=== PATIENT | female | born 1995 | race Caucasian/White ===

== ENCOUNTER 2018-03-01 21:45 | Inpatient (IN) ==
[2018-03-01] MEDS ORDERED: ONDANSETRON 4 MG/2 ML VIAL IV PRN (22:00)
[2018-03-01] MEDS ORDERED: MEPERIDINE 50 MG/1 ML VIAL IV PRN (22:00)
[2018-03-01] MEDS ORDERED: BUTORPHANOL 2 MG/ML VIAL IV PRN (22:00)
[2018-03-01 22:28] LABS: Basophils % 0.2 % (0.0-0.8); Eosinophils # 0.1 10*3/uL (0.0-0.87); Eosinophils % 0.6 % (0.00-10.9); Hematocrit 33.8 VOL% (35.7-47.0); Hemoglobin 10.7 GM/DL (12.0-16.0); Immature Granulocytes % 1.1 %; Lymphocytes # 1.4 10*3/uL (1.4-4.0); Lymphocytes % 14.9 % (21.3-54.2); Mean Corpuscular HGB Conc 31.7 GM/DL (32-36); Mean Corpuscular Hemoglobin 24 PG (27-34); Mean Corpuscular Volume 75.6 FL (87-102); Mean Platelet Volume 10.2 FL (9.6-12.0); Monocytes # 0.5 10*3/uL (0.11-0.8); Monocytes % 5.2 % (1.7-12.7); Neutrophils # 7.2 10*3/uL (1.4-7.4); Platelet Count 296 T/CUMM (130-400); Red Blood Count 4.47 MC/CUMM (3.8-5.5); Red Cell Distribution Width 17.2 % (9.3-17.3); White Blood Count 9.2 T/CUMM (4-12)
[2018-03-01 22:46] LABS: Albumin 2.6 G/DL (3.4-5.0); Bilirubin,Total 0.5 MG/DL (0.2-1.0); Osmolality,Calculated 273.7 MOS/KG (273-304); Potassium 3.9 MMOL/L (3.5-5.1); Total Protein 6.8 G/DL (6.4-8.3)
[2018-03-02] MEDS: LACTATED RINGERS 1,000 ML IV SCH
[2018-03-03] MEDS ORDERED: PROMETHAZINE 25 MG/1 ML VIAL IM ONE (07:31)
[2018-03-03] MEDS ORDERED: ONDANSETRON 4 MG/2 ML VIAL IV ONE (07:31)
[2018-03-03] MEDS ORDERED: hydrOXYzine HCL 25 MG/1 ML VIAL IM PRN (07:31)
[2018-03-03] MEDS ORDERED: ePHEDrine 50 MG/ML AMP IV PRN (07:31)
[2018-03-03] MEDS ORDERED: diphenhydrAMINE 50 MG/1 ML VIAL IV PRN ×2 (07:31)
[2018-03-03] MEDS ORDERED: LACTATED RINGERS 1,000 ML IV ONE (07:31)
[2018-03-03] MEDS ORDERED: LACTATED RINGERS 500 ML IV ONE (07:31)
[2018-03-03] MEDS ORDERED: CITRIC ACID/SODIUM CITRATE 30 ML UDCUP PO ONE (07:32)
[2018-03-03] MEDS ORDERED: FAMOTIDINE 20 MG/2 ML VIAL IV ONE (07:32)
[2018-03-03] MEDS ORDERED: OXYTOCIN/LR 20 UNIT/1,000 ML BAG IV SCH (08:00)
[2018-03-03] MEDS ORDERED: CLINDAMYCIN INJ 900 MG in PREMIX 1 EACH IV SCH (08:00)
[2018-03-03] MEDS ORDERED: fentaNYL 2 MCG/ROPIV 0.2% EPID 150 ML EPIDURAL SCH (08:00)
[2018-03-03] MEDS ORDERED: LACTATED RINGERS 1,000 ML IV SCH ×2 (08:00)
[2018-03-03 08:35] LABS: Basophils % 0.1 % (0.0-0.8); Eosinophils # 0.1 10*3/uL (0.0-0.87); Eosinophils % 0.7 % (0.00-10.9); Hematocrit 35.7 VOL% (35.7-47.0); Hemoglobin 11.2 GM/DL (12.0-16.0); Immature Granulocytes % 0.7 %; Immature Granulocytes Absolute 0.07 #; Lymphocytes # 1.5 10*3/uL (1.4-4.0); Lymphocytes % 13.6 % (21.3-54.2); Mean Corpuscular HGB Conc 31.4 GM/DL (32-36); Mean Corpuscular Hemoglobin 24 PG (27-34); Mean Corpuscular Volume 76.9 FL (87-102); Monocytes # 0.6 10*3/uL (0.11-0.8); Monocytes % 5.8 % (1.7-12.7); Neutrophils # 8.5 10*3/uL (1.4-7.4); Neutrophils % 79.1 % (38.7-73.9); Platelet Count 249 T/CUMM (130-400); Red Blood Count 4.64 MC/CUMM (3.8-5.5); Red Cell Distribution Width 17.4 % (9.3-17.3); White Blood Count 10.7 T/CUMM (4-12)
[2018-03-03] MEDS: LACTATED RINGERS 1,000 ML IV SCH (08:52)
[2018-03-03] MEDS ORDERED: LIDOCAINE 1% 50 ML VIAL ONE (11:46)
[2018-03-03] MEDS ORDERED: miSOPROStol 200 MCG TABLET ONE (11:47)
[2018-03-03] MEDS ORDERED: CARBOPROST TROMETHAMINE 250 MCG/ML AMP IM ONE (11:47)
[2018-03-03] MEDS ORDERED: METHYLERGONOVINE 0.2 MG/1 ML AMP ONE (11:47)
[2018-03-03] MEDS ORDERED: ACETAMINOPHEN 325 MG TABLET PO PRN (13:07)
[2018-03-03] MEDS ORDERED: ONDANSETRON 4 MG/2 ML VIAL IV PRN (13:07)
[2018-03-03] MEDS ORDERED: MEASLES/MUMPS/RUBELLA VACCINE 0.5 ML VIAL SUBCUT ONE (13:07)
[2018-03-03] MEDS ORDERED: WITCH HAZEL PADS 100/JAR TOP PRN (13:07)
[2018-03-03] MEDS ORDERED: LANOLIN 50% CREAM 0.3 OZ TUBE TOP PRN (13:07)
[2018-03-03] MEDS ORDERED: OXYTOCIN/LR 20 UNIT/1,000 ML BAG IV ONE (13:07)
[2018-03-03] MEDS ORDERED: HYDROCORTISONE 2.5% RECTAL CREAM 30 GM TUBE TOP PRN (13:07)
[2018-03-03] MEDS ORDERED: DIPH/TET/ACEL PERT BOOSTER VACCINE 0.5 ML VIAL IM ONE (13:07)
[2018-03-03] MEDS ORDERED: RHO(D) IMMUNE GLOBULIN 300 MCG SYRINGE IM ONE (13:07)
[2018-03-03] MEDS ORDERED: BISACODYL 10 MG SUPP RECTAL PRN (13:07)
[2018-03-03] MEDS ORDERED: BENZOCAINE 20%/MENTHOL 0.5% SPRAY 56 GM CAN TOP PRN (13:07)
[2018-03-03] MEDS: IBUPROFEN 800 MG TABLET PO PRN (17:31)
[2018-03-03] MEDS ORDERED: ONDANSETRON 4 MG TABLET PO PRN (21:05)
[2018-03-03] MEDS: oxyCODONE/ACETAMINOPHEN 5-325 MG TABLET PO PRN (21:15)
[2018-03-03] MEDS: DOCUSATE SODIUM 100 MG CAPSULE PO SCH (21:16)
[2018-03-04] MEDS: IBUPROFEN 800 MG TABLET PO PRN ×3 (03:15→19:18)
[2018-03-04] MEDS: oxyCODONE/ACETAMINOPHEN 5-325 MG TABLET PO PRN ×3 (03:15→19:18)
[2018-03-04 04:59] LABS: Basophils % 0.2 % (0.0-0.8); Eosinophils % 0.2 % (0.00-10.9); Hematocrit 32.4 VOL% (35.7-47.0); Hemoglobin 10.3 GM/DL (12.0-16.0); Immature Granulocytes % 0.6 %; Immature Granulocytes Absolute 0.08 #; Lymphocytes # 1.5 10*3/uL (1.4-4.0); Lymphocytes % 11.6 % (21.3-54.2); Mean Corpuscular HGB Conc 31.8 GM/DL (32-36); Mean Corpuscular Hemoglobin 24 PG (27-34); Mean Corpuscular Volume 76.8 FL (87-102); Mean Platelet Volume 11.1 FL (9.6-12.0); Monocytes # 0.8 10*3/uL (0.11-0.8); Monocytes % 6.3 % (1.7-12.7); Neutrophils # 10.2 10*3/uL (1.4-7.4); Neutrophils % 81.1 % (38.7-73.9); Platelet Count 266 T/CUMM (130-400); Red Blood Count 4.22 MC/CUMM (3.8-5.5); Red Cell Distribution Width 17.4 % (9.3-17.3); White Blood Count 12.5 T/CUMM (4-12)
[2018-03-04] MEDS: DOCUSATE SODIUM 100 MG CAPSULE PO SCH ×2 (08:16→21:01)
[2018-03-05 07:29] VITALS: BP 98/56
[2018-03-05] MEDS: DOCUSATE SODIUM 100 MG CAPSULE PO SCH (09:20)
[2018-03-05] MEDS: IBUPROFEN 800 MG TABLET PO PRN (09:36)
[2018-03-07 09:11] LABS: Total Chenodeoxycholic acid 1.58 nmol/mL (<=6.00); Total Cholic acid 3.4 nmol/mL (<=5.00); Total Deoxycholic acid 1.83 nmol/mL (<=6.00); Total Ursodeoxycholic acid 2.08 nmol/mL (<=2.00)
== END 2018-03-05 11:50 | disposition home or self-care (01) | DRG 775 ==
LOC: N.LDOUT 21:45 → N.LD 21:46 → N.OB 03-03 17:22
PROVIDERS: ADMIT Specialist; ATTEND Specialist

== ENCOUNTER 2018-03-19 15:56 | Inpatient (IN) ==
[2018-03-19 16:49] LABS: Basophils % 0.4 % (0.0-0.8); Eosinophils # 0.1 10*3/uL (0.0-0.87); Eosinophils % 1.6 % (0.00-10.9); Hematocrit 38.8 VOL% (35.7-47.0); Hemoglobin 12.2 GM/DL (12.0-16.0); Immature Granulocytes % 0.5 %; Immature Granulocytes Absolute 0.04 #; Lymphocytes # 1.3 10*3/uL (1.4-4.0); Lymphocytes % 17.3 % (21.3-54.2); Mean Corpuscular HGB Conc 31.4 GM/DL (32-36); Mean Corpuscular Hemoglobin 24 PG (27-34); Mean Corpuscular Volume 75.2 FL (87-102); Mean Platelet Volume 10.1 FL (9.6-12.0); Monocytes # 0.4 10*3/uL (0.11-0.8); Monocytes % 5.6 % (1.7-12.7); Neutrophils # 5.7 10*3/uL (1.4-7.4); Neutrophils % 74.6 % (38.7-73.9); Platelet Count 325 T/CUMM (130-400); Red Blood Count 5.16 MC/CUMM (3.8-5.5); Red Cell Distribution Width 15.9 % (9.3-17.3); White Blood Count 7.6 T/CUMM (4-12)
[2018-03-19 17:07] LABS: Albumin 3.4 G/DL (3.4-5.0); Bilirubin,Direct 0.74 MG/DL (0.0-0.20); Bilirubin,Indirect 0.5 MG/DL (0.0-1.0); Bilirubin,Total 1.2 MG/DL (0.2-1.0); Calcium 8.8 MG/DL (8.5-10.1); Osmolality,Calculated 281.3 MOS/KG (273-304); Potassium 4.3 MMOL/L (3.5-5.1); Total Protein 7.7 G/DL (6.4-8.3)
[2018-03-19 17:43] LABS: Apearance,Urine CLEAR (Clear); Bacteria,Urine Occasional /HPF (Few); Bilirubin,Urine Negative (Negative); Blood, Urine Moderate mg/dL (Negative); Glucose,Urine (UA) Negative (Negative); Ketones,Urine Negative (Negative); Mucus,Urine Occasional /LPF (Occasional); Nitrite,Urine Negative (Negative); Protein,Urine Negative; RBC,Urine 5 /HPF (0-4); Renal Epithelial Cells,Urine Occasional /HPF (<1); Squamous Epithelial Cell,Urine Occasional /HPF (0-10); Urine Color Yellow (Yellow); Urine Specific Gravity 1.015 (1.001-1.035); Urine Urobilinogen < 2.0 EU/DL (0.2-1.0); WBC,Urine 7 /HPF (0-6)
[2018-03-19] MEDS ORDERED: KETOROLAC 30 MG/1 ML VIAL ONE (17:44)
[2018-03-19] MEDS ORDERED: KETOROLAC 30 MG/1 ML VIAL IV STA (17:44)
[2018-03-19] MEDS ORDERED: BISACODYL 5 MG TABLET PO PRN (18:23)
[2018-03-19] MEDS ORDERED: BISACODYL 10 MG SUPP RECTAL PRN (18:23)
[2018-03-19] MEDS ORDERED: ONDANSETRON 4 MG/2 ML VIAL IV STA (18:23)
[2018-03-19] MEDS ORDERED: ACETAMINOPHEN 325 MG TABLET PO PRN (18:23)
[2018-03-19] MEDS ORDERED: MORPHINE 4 MG/1 ML VIAL IV STA (18:23)
[2018-03-19] MEDS ORDERED: ALUMINUM/MAGNES/SIMETH MAX STR 30 ML UDCUP PO PRN (18:23)
[2018-03-19] MEDS ORDERED: ONDANSETRON 4 MG/2 ML VIAL ONE (18:24)
[2018-03-19] MEDS ORDERED: MORPHINE 4 MG/1 ML VIAL ONE (18:24)
[2018-03-19] MEDS ORDERED: BISACODYL 5 MG TABLET PO ONE (18:30)
[2018-03-19 20:41] LABS: Hepatitis A Ab IgM Quant 0.29 Index; Hepatitis A Ab IgM Result Negative (Negative); Hepatitis B Core IgM Quant < 0.05 Index; Hepatitis B Core IgM Result Negative (Negative); Hepatitis B Surface Ag Quant 0.31 Index; Hepatitis B Surface Ag Result Negative (Negative); Hepatitis C Virus Ab Quant < 0.02 Index; Hepatitis C Virus Ab Result Negative (Negative)
[2018-03-19] MEDS: LACTATED RINGERS 1,000 ML IV SCH (21:06)
[2018-03-19] MEDS: CIPROFLOXACIN INJ 400 MG in PREMIX 1 EACH IV SCH (21:10)
[2018-03-19] MEDS: DOCUSATE SODIUM 100 MG CAPSULE PO SCH (21:14)
[2018-03-20] MEDS: LACTATED RINGERS 1,000 ML IV SCH ×4 (06:12→23:38)
[2018-03-20 07:12] LABS: Basophils % 0.7 % (0.0-0.8); Eosinophils # 0.1 10*3/uL (0.0-0.87); Eosinophils % 3.1 % (0.00-10.9); Hematocrit 34.4 VOL% (35.7-47.0); Hemoglobin 10.4 GM/DL (12.0-16.0); Immature Granulocytes % 0.4 %; Immature Granulocytes Absolute 0.02 #; Lymphocytes # 1.5 10*3/uL (1.4-4.0); Lymphocytes % 33.6 % (21.3-54.2); Mean Corpuscular HGB Conc 30.2 GM/DL (32-36); Mean Corpuscular Hemoglobin 23 PG (27-34); Mean Corpuscular Volume 76.4 FL (87-102); Mean Platelet Volume 10.6 FL (9.6-12.0); Monocytes # 0.4 10*3/uL (0.11-0.8); Monocytes % 9.1 % (1.7-12.7); Neutrophils # 2.4 10*3/uL (1.4-7.4); Neutrophils % 53.1 % (38.7-73.9); Platelet Count 269 T/CUMM (130-400); Red Cell Distribution Width 16.3 % (9.3-17.3); White Blood Count 4.5 T/CUMM (4-12)
[2018-03-20 07:33] LABS: Albumin 2.6 G/DL (3.4-5.0); Calcium 8.2 MG/DL (8.5-10.1); Osmolality,Calculated 282.1 MOS/KG (273-304); Potassium 4.1 MMOL/L (3.5-5.1); Total Protein 6.2 G/DL (6.4-8.3)
[2018-03-20] MEDS: CIPROFLOXACIN INJ 400 MG in PREMIX 1 EACH IV SCH (08:55)
[2018-03-20] MEDS: PANTOPRAZOLE 40 MG TABLET PO SCH (08:55)
[2018-03-20] MEDS: DOCUSATE SODIUM 100 MG CAPSULE PO SCH ×2 (08:56→20:32)
[2018-03-20] MEDS ORDERED: KETOROLAC 15 MG/1 ML VIAL IV PRN (09:37)
[2018-03-20] MEDS ORDERED: metroNIDAZOLE INJ 500 MG in PREMIX 1 EACH IV SCH (10:00)
[2018-03-20] MEDS: NITROFURANTOIN MACRO/MONO 100 MG CAPSULE PO SCH ×2 (11:15→22:33)
[2018-03-20 12:22] LABS: % Iron Saturation 7.7 % (18-50); Ferritin 6.5 ng/ml (8-252)
[2018-03-20] MEDS: ENOXAPARIN 40 MG/0.4 ML SYRINGE SUBCUT SCH ×2 (17:28→19:35)
[2018-03-20] MEDS: MORPHINE 4 MG/1 ML VIAL IV PRN (22:34)
[2018-03-21] MEDS: LACTATED RINGERS 1,000 ML IV SCH ×2 (07:48→15:47)
[2018-03-21] MEDS: PANTOPRAZOLE 40 MG TABLET PO SCH ×2 (07:49→08:37)
[2018-03-21] MEDS: MULTIVITAMIN (PRENATAL) TABLET PO SCH ×2 (07:49→08:37)
[2018-03-21] MEDS: DOCUSATE SODIUM 100 MG CAPSULE PO SCH ×3 (07:49→23:05)
[2018-03-21 10:00] LABS: INR 0.9; PT Patient Result 9.6 SECS
[2018-03-21 10:03] LABS: Albumin 2.7 G/DL (3.4-5.0); Bilirubin,Total 1.8 MG/DL (0.2-1.0); Calcium 8.7 MG/DL (8.5-10.1); Osmolality,Calculated 277.4 MOS/KG (273-304); Potassium 4.9 MMOL/L (3.5-5.1); Total Protein 6.2 G/DL (6.4-8.3)
[2018-03-21] MEDS: ONDANSETRON 4 MG/2 ML VIAL IV PRN (10:16)
[2018-03-21] MEDS: NITROFURANTOIN MACRO/MONO 100 MG CAPSULE PO SCH (10:51)
[2018-03-21] MEDS: ENOXAPARIN 40 MG/0.4 ML SYRINGE SUBCUT SCH (12:30)
[2018-03-22] MEDS: LACTATED RINGERS 1,000 ML IV SCH ×2 (02:09→12:54)
[2018-03-22 05:26] LABS: Basophils % 0.6 % (0.0-0.8); Eosinophils # 0.2 10*3/uL (0.0-0.87); Eosinophils % 3.8 % (0.00-10.9); Hematocrit 33.7 VOL% (35.7-47.0); Hemoglobin 10.8 GM/DL (12.0-16.0); Immature Granulocytes % 0.4 %; Immature Granulocytes Absolute 0.02 #; Lymphocytes # 1.6 10*3/uL (1.4-4.0); Lymphocytes % 33.4 % (21.3-54.2); Mean Corpuscular Hemoglobin 24 PG (27-34); Mean Corpuscular Volume 74.9 FL (87-102); Mean Platelet Volume 11.5 FL (9.6-12.0); Monocytes # 0.4 10*3/uL (0.11-0.8); Monocytes % 7.8 % (1.7-12.7); Neutrophils # 2.6 10*3/uL (1.4-7.4); Platelet Count 242 T/CUMM (130-400); Red Cell Distribution Width 16.7 % (9.3-17.3); White Blood Count 4.8 T/CUMM (4-12)
[2018-03-22 05:59] LABS: Albumin 2.4 G/DL (3.4-5.0); Bilirubin,Total 0.9 MG/DL (0.2-1.0); Calcium 8.5 MG/DL (8.5-10.1); Osmolality,Calculated 280.1 MOS/KG (273-304); Total Protein 5.8 G/DL (6.4-8.3)
[2018-03-22 08:13] LABS: Total Protein (Chem) 6.7 G/DL (6.4-8.3)
[2018-03-22] MEDS: MULTIVITAMIN (PRENATAL) TABLET PO SCH (09:08)
[2018-03-22] MEDS: DOCUSATE SODIUM 100 MG CAPSULE PO SCH ×2 (09:08→22:02)
[2018-03-22 10:25] LABS: Albumin (SPE) 3.6 G/DL (3.2-5.3); Albumin (SPE) Rel % 54.1 %
[2018-03-22 10:26] LABS: Alpha 1 (SPE) 0.2 G/DL (0.1-0.4); Alpha 1 (SPE) Rel % 3.5 %; Alpha 2 (SPE) 0.9 G/DL (0.4-1.0); Alpha 2 (SPE) Rel % 14.2 %; Gamma (SPE) Rel % 14.2 %
[2018-03-22] MEDS: HydrOXYzine PAMOATE 25 MG CAPSULE PO PRN ×2 (10:51→22:02)
[2018-03-22] MEDS: ENOXAPARIN 40 MG/0.4 ML SYRINGE SUBCUT SCH (15:37)
[2018-03-22] MEDS: CHOLESTYRAMINE 4 GM PACK PO SCH (16:27)
[2018-03-22] MEDS: ONDANSETRON 4 MG/2 ML VIAL IV PRN (22:00)
[2018-03-23] MEDS: LACTATED RINGERS 1,000 ML IV SCH ×3 (02:22→22:17)
[2018-03-23] MEDS: MORPHINE 4 MG/1 ML VIAL IV PRN ×2 (03:41→21:10)
[2018-03-23 07:29] LABS: Basophils % 0.4 % (0.0-0.8); Eosinophils # 0.2 10*3/uL (0.0-0.87); Eosinophils % 3.6 % (0.00-10.9); Hematocrit 33.1 VOL% (35.7-47.0); Hemoglobin 10.1 GM/DL (12.0-16.0); Immature Granulocytes % 0.4 %; Immature Granulocytes Absolute 0.02 #; Lymphocytes # 1.6 10*3/uL (1.4-4.0); Lymphocytes % 31.5 % (21.3-54.2); Mean Corpuscular HGB Conc 30.5 GM/DL (32-36); Mean Corpuscular Hemoglobin 24 PG (27-34); Mean Corpuscular Volume 77.7 FL (87-102); Mean Platelet Volume 10.9 FL (9.6-12.0); Monocytes # 0.4 10*3/uL (0.11-0.8); Neutrophils # 2.9 10*3/uL (1.4-7.4); Neutrophils % 57.1 % (38.7-73.9); Platelet Count 217 T/CUMM (130-400); Red Blood Count 4.26 MC/CUMM (3.8-5.5)
[2018-03-23 08:06] LABS: Albumin 2.5 G/DL (3.4-5.0); Bilirubin,Total 0.9 MG/DL (0.2-1.0); Osmolality,Calculated 277.4 MOS/KG (273-304); Potassium 4.4 MMOL/L (3.5-5.1); Total Protein 5.8 G/DL (6.4-8.3)
[2018-03-23] MEDS: ENOXAPARIN 40 MG/0.4 ML SYRINGE SUBCUT SCH (09:22)
[2018-03-23] MEDS: DOCUSATE SODIUM 100 MG CAPSULE PO SCH ×2 (09:22→21:09)
[2018-03-23] MEDS: CHOLESTYRAMINE 4 GM PACK PO SCH (09:22)
[2018-03-23] MEDS: MULTIVITAMIN (PRENATAL) TABLET PO SCH (09:22)
[2018-03-23] MEDS: POLYETHYLENE GLYCOL POWDER 17 GM PACK PO SCH ×2 (11:36→21:10)
[2018-03-23] MEDS: COLESTIPOL 1 GM TABLET PO SCH (11:38)
[2018-03-23 13:52] LABS: Mitochondrial Antibody (M2) <0.1 U
[2018-03-23 14:43] LABS: Smooth Muscle Antibody Negative (Negative)
[2018-03-24] MEDS: LACTATED RINGERS 1,000 ML IV SCH ×2 (04:46→16:21)
[2018-03-24 06:41] LABS: Basophils % 0.4 % (0.0-0.8); Eosinophils # 0.2 10*3/uL (0.0-0.87); Eosinophils % 4.4 % (0.00-10.9); Hematocrit 34.9 VOL% (35.7-47.0); Hemoglobin 10.9 GM/DL (12.0-16.0); Immature Granulocytes % 0.4 %; Immature Granulocytes Absolute 0.02 #; Lymphocytes # 1.9 10*3/uL (1.4-4.0); Lymphocytes % 37.3 % (21.3-54.2); Mean Corpuscular HGB Conc 31.2 GM/DL (32-36); Mean Corpuscular Hemoglobin 24 PG (27-34); Mean Corpuscular Volume 76.7 FL (87-102); Mean Platelet Volume 11.2 FL (9.6-12.0); Monocytes # 0.3 10*3/uL (0.11-0.8); Neutrophils # 2.7 10*3/uL (1.4-7.4); Neutrophils % 51.5 % (38.7-73.9); Platelet Count 236 T/CUMM (130-400); Red Blood Count 4.55 MC/CUMM (3.8-5.5); Red Cell Distribution Width 17.1 % (9.3-17.3); White Blood Count 5.2 T/CUMM (4-12)
[2018-03-24] MEDS ORDERED: TISSUE ADHESIVE 1 EACH APPLICATOR TOP ONE (07:10)
[2018-03-24] MEDS ORDERED: LIDOCAINE 1%/EPI INJ 20 ML VIAL ONE (07:10)
[2018-03-24] MEDS ORDERED: BUPIVACAINE 0.25% /EPI 10 ML VIAL ONE (07:10)
[2018-03-24 07:15] LABS: Albumin 2.5 G/DL (3.4-5.0); Bilirubin,Total 0.6 MG/DL (0.2-1.0); Calcium 8.6 MG/DL (8.5-10.1); Osmolality,Calculated 279.1 MOS/KG (273-304); Potassium 3.9 MMOL/L (3.5-5.1); Total Protein 5.9 G/DL (6.4-8.3)
[2018-03-24 07:17] LABS: Free T4 (Free Thyroxine) 0.97 NG/DL (0.76-1.46); Thyroid Stimulating Hormone 0.993 uIU/ml (0.358-3.74)
[2018-03-24] MEDS ORDERED: ceFAZolin 1,000 MG VIAL ONE (08:25)
[2018-03-24] MEDS ORDERED: NEOSTIGMINE 10 MG/10 ML VIAL IV ONE (09:30)
[2018-03-24] MEDS ORDERED: SEVOFLURANE 1 UNIT/15 MINUTE INH ONE (09:33)
[2018-03-24] MEDS ORDERED: PROPOFOL 200 MG/20 ML VIAL IV ONE (09:33)
[2018-03-24] MEDS ORDERED: fentaNYL 100 MCG/2 ML VIAL ONE (09:33)
[2018-03-24] MEDS ORDERED: MIDAZOLAM 2 MG/2 ML VIAL ONE (09:33)
[2018-03-24] MEDS ORDERED: ROCURONIUM 100 MG/10 ML VIAL IV ONE (09:34)
[2018-03-24] MEDS ORDERED: GLYCOPYRROLATE 0.4 MG/2 ML VIAL ONE (09:34)
[2018-03-24] MEDS ORDERED: DEXAMETHASONE 10 MG/1 ML VIAL ONE (09:34)
[2018-03-24] MEDS ORDERED: NEOSTIGMINE 10 MG/10 ML VIAL ONE (09:34)
[2018-03-24] MEDS ORDERED: ONDANSETRON 4 MG/2 ML VIAL ONE (09:34)
[2018-03-24] MEDS: DOCUSATE SODIUM 100 MG CAPSULE PO SCH ×2 (11:02→21:53)
[2018-03-24] MEDS: MULTIVITAMIN (PRENATAL) TABLET PO SCH (11:02)
[2018-03-24] MEDS: COLESTIPOL 1 GM TABLET PO SCH (11:02)
[2018-03-24] MEDS: ENOXAPARIN 40 MG/0.4 ML SYRINGE SUBCUT SCH (11:04)
[2018-03-24] MEDS: POLYETHYLENE GLYCOL POWDER 17 GM PACK PO SCH ×2 (11:04→21:53)
[2018-03-24] MEDS ORDERED: MEPERIDINE 25 MG/1 ML VIAL ONE (12:26)
[2018-03-24] MEDS: MORPHINE 4 MG/1 ML VIAL IV PRN ×2 (14:34→21:53)
[2018-03-24] MEDS ORDERED: SIMETHICONE CHEW 125 MG TABLET PO PRN (16:33)
[2018-03-24] MEDS ORDERED: BISACODYL 10 MG SUPP RECTAL ONE (16:34)
[2018-03-25] MEDS: LACTATED RINGERS 1,000 ML IV SCH ×3 (00:04→16:42)
[2018-03-25] MEDS: MORPHINE 4 MG/1 ML VIAL IV PRN ×3 (05:08→18:37)
[2018-03-25 05:25] LABS: Basophils % 0.2 % (0.0-0.8); Eosinophils # 0.1 10*3/uL (0.0-0.87); Eosinophils % 1.2 % (0.00-10.9); Hematocrit 32.8 VOL% (35.7-47.0); Hemoglobin 10.2 GM/DL (12.0-16.0); Immature Granulocytes % 0.5 %; Immature Granulocytes Absolute 0.04 #; Lymphocytes # 2.1 10*3/uL (1.4-4.0); Mean Corpuscular HGB Conc 31.1 GM/DL (32-36); Mean Corpuscular Hemoglobin 23 PG (27-34); Mean Corpuscular Volume 75.2 FL (87-102); Mean Platelet Volume 10.8 FL (9.6-12.0); Monocytes # 0.5 10*3/uL (0.11-0.8); Monocytes % 5.6 % (1.7-12.7); Neutrophils # 5.6 10*3/uL (1.4-7.4); Neutrophils % 67.5 % (38.7-73.9); Platelet Count 255 T/CUMM (130-400); Red Blood Count 4.36 MC/CUMM (3.8-5.5); Red Cell Distribution Width 17.2 % (9.3-17.3); White Blood Count 8.3 T/CUMM (4-12)
[2018-03-25 06:00] LABS: Albumin 2.7 G/DL (3.4-5.0); Bilirubin,Total 0.6 MG/DL (0.2-1.0); Calcium 8.1 MG/DL (8.5-10.1); Potassium 3.8 MMOL/L (3.5-5.1); Total Protein 5.8 G/DL (6.4-8.3)
[2018-03-25] MEDS: COLESTIPOL 1 GM TABLET PO SCH (08:37)
[2018-03-25] MEDS: MULTIVITAMIN (PRENATAL) TABLET PO SCH (08:37)
[2018-03-25] MEDS: DOCUSATE SODIUM 100 MG CAPSULE PO SCH ×2 (08:37→21:00)
[2018-03-25] MEDS: POLYETHYLENE GLYCOL POWDER 17 GM PACK PO SCH ×2 (08:37→21:00)
[2018-03-25] MEDS: HydrOXYzine PAMOATE 25 MG CAPSULE PO PRN (09:08)
[2018-03-25] MEDS: ONDANSETRON 4 MG/2 ML VIAL IV PRN (18:36)
[2018-03-26] MEDS: LACTATED RINGERS 1,000 ML IV SCH ×3 (02:03→09:14)
[2018-03-26] MEDS: MULTIVITAMIN (PRENATAL) TABLET PO SCH (09:12)
[2018-03-26] MEDS: POLYETHYLENE GLYCOL POWDER 17 GM PACK PO SCH (09:12)
[2018-03-26] MEDS: ENOXAPARIN 40 MG/0.4 ML SYRINGE SUBCUT SCH ×2 (09:12→09:18)
[2018-03-26] MEDS: COLESTIPOL 1 GM TABLET PO SCH (09:12)
[2018-03-26] MEDS: DOCUSATE SODIUM 100 MG CAPSULE PO SCH (09:13)
[2018-03-26 12:09] VITALS: BP 104/64
== END 2018-03-26 13:30 | disposition home or self-care (01) | DRG 769 ==
LOC: N.ED 15:56 → SUATTDRO 19:36 → N.EDINP 19:36 → N.2E 20:03
PROVIDERS: ADMIT Surgery; ATTEND Hospitalist
PROC: LAPCHOL (2018-03-24 08:04)